=== PATIENT | female | born 1975 | race Two or more races ===

== ENCOUNTER 2018-09-21 23:17 | Inpatient (IN) | payer OTHER ==
[~2018-09-21] VITALS: Ht 165.1 cm; Wt 76.2 kg
== END 2018-09-29 01:07 | disposition home or self-care (01) | DRG 693 ==
LOC: ER 23:17 → MEDJ 09-22 11:19 → SEC-K 09-22 11:19 → MEDJ 09-22 13:59
PROVIDERS: Urology
PROC: 3E0F7GC Introduction of Other Therapeutic Substance into Respiratory Tract, Via Natural or Artificial Opening (ICD-10-PCS; 2018-09-22)
PROC: 0T9680Z Drainage of Right Ureter with Drainage Device, Via Natural or Artificial Opening Endoscopic (ICD-10-PCS; principal; 2018-09-22 23:00)
DX: N20.1 Calculus of ureter (principal); A41.51 Sepsis due to Escherichia coli [E. coli]; N13.6 Pyonephrosis; E87.1 Hypo-osmolality and hyponatremia; E86.0 Dehydration; E87.6 Hypokalemia

== ENCOUNTER 2018-11-10 07:05 | Day surgery (SDC) | payer OTHER | END 2018-11-10 15:45 | disposition home or self-care (01) | LOC: CIR.AMB 07:05 | DX: N20.1 Calculus of ureter (principal) ==